=== PATIENT | female | born 1990 | race Caucasian/White ===

== ENCOUNTER 2019-10-17 18:07 | Emergency (ER) | payer BC ==
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
[2019-10-17] MEDS ORDERED: IBUPROFEN 600 MG TABLET PO ONE (19:31)
[2019-10-17] MEDS ORDERED: ACETAMINOPHEN 325 MG TABLET PO ONE (19:31)
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
--- NOTE | 2019-10-17 20:31 | RADIOLOGY REPORT (SQ) ---
EXAM DESCRIPTION: XR KNEE 2 VIEWS COMPLETED DATE/TME: 10/17/2019 00:00 CLINICAL HISTORY: 29 years, Female, pain to left knee COMPARISON: None. FINDINGS: No fracture or dislocation. Soft tissues are unremarkable. IMPRESSION: No acute abnormality.
--- NOTE | 2019-10-17 20:32 | RADIOLOGY REPORT (SQ) ---
EXAM DESCRIPTION: XR FOOT 3 VIEWS left COMPLETED DATE/TME: 10/17/2019 19:24 CLINICAL HISTORY: 29 years, Female, pain; [place] COMPARISON: None. FINDINGS: No fracture or dislocation. Soft tissues are unremarkable. IMPRESSION: No acute abnormality.
--- NOTE | 2019-10-17 20:33 | RADIOLOGY REPORT (SQ) ---
EXAM DESCRIPTION: XR ANKLE 3 VIEWS left COMPLETED DATE/TME: 10/17/2019 19:24 CLINICAL HISTORY: 29 years, Female, pain; [place] COMPARISON: None. FINDINGS: No fracture or dislocation. Soft tissues are unremarkable. IMPRESSION: No acute abnormality.
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
[2019-10-17 21:11] VITALS: BP 126/84
== END 2019-10-17 21:10 | disposition home or self-care (01) ==
LOC: ER 18:07
DX: M79.605 Pain in left leg (principal); J45.909 Unspecified asthma, uncomplicated; R06.02 Shortness of breath; Z79.899 Other long term (current) drug therapy; F17.200 Nicotine dependence, unspecified, uncomplicated
CPT/HCPCS: 71046; 99283